=== PATIENT | female | born 1950 ===

== ENCOUNTER 2017-04-29 13:48 | Emergency (ER) | payer OTHER ==
[~2017-04-29] VITALS: Ht 162.6 cm; Wt 73.6 kg
[2017-04-29 13:58] VITALS: TEMP 36.7; Ht 162.6 cm; Wt 73.6 kg
[2017-04-29] MEDS ORDERED: SIMV40TA2 PO (14:06)
[2017-04-29] MEDS ORDERED: XLTOPS (14:06)
[2017-04-29] MEDS ORDERED: MONT1TAB3 PO (14:06)
[2017-04-29] MEDS ORDERED: FAMO40TA6 PO (14:06)
[2017-04-29] MEDS ORDERED: SODIUM CHLORIDE 0.9% 1000ML 1,000 ML IV STA (14:14)
[2017-04-29] MEDS ORDERED: IBUPROFEN 200 MG TAB PO STA (14:14)
[2017-04-29] MEDS ORDERED: ACETAMINOPHEN 325 MG TAB PO STA (14:14)
[2017-04-29] MEDS ORDERED: HYDROCODONE/ACETAMOPHEN 5/325MG TAB PO STA (14:14)
[2017-04-29 14:35] LABS: BASO % 0.1 %; BASO ABS # 0.01 K/uL (0-0.2); COMPLETE YES; EOS % 2.2 %; IG% 0.3 %; LYMPH % 33.4 %; LYMPH ABS # 2.61 K/uL (1.2-3.4); MEAN CELL VOLUME 90.9 fL (80-100); MEAN CORPUSCULAR HEMOGLOBIN 30.5 pg (25-34); MEAN CORPUSCULAR HGB CONC 33.6 g/dl (32-36); MEAN PLATELET VOLUME 11.8 fL (7.4-10.4); MONO % 9.8 %; NEUT % 54.2 %; PLATELET COUNT 188 K/uL (130-400); RED BLOOD COUNT 4.29 M/uL (4.2-5.4); WHITE BLOOD COUNT 7.82 K/uL (4.8-10.8)
[2017-04-29 14:45] LABS: URINE APPEARANCE CLEAR (CLEAR); URINE BILIRUBIN NEG (NEG); URINE COLOR YELLOW; URINE EPITHELIAL CELL AUTO >30 /lpf (0-5); URINE NITRITE NEG (NEG); URINE PH 5.5 (4.5-7.5); URINE SPECIFIC GRAVITY 1.019 (1.000-1.030); UROBILINOGEN NEG (NEG); ZZUR CULT IF INDIC CLEAN CATCH YES
[2017-04-29 14:53] LABS: BUN/CREATININE RATIO 18.1 (10-20); CALCIUM 9.2 mg/dl (8.5-10.1); CREATININE 0.72 mg/dl (0.60-1.20); POTASSIUM 3.4 mmol/L (3.5-5.1)
[2017-04-29 14:57] LABS: MANUAL MICROSCOPIC REQUIRED? NO; REVIEW REQ? NO
--- NOTE | 2017-04-29 16:06 | DIAGNOSTIC IMAGING REPORT ---
(RENAL)RETROPERITON COMP HISTORY: 66 years-old Female h/o nephrolithiasis, R sided flank pain acute right-sided flank pain with history of nephrolithiasis. COMPARISON: None available. TECHNIQUE: Multiple real-time sonographic images of the kidneys and urinary bladder were obtained assessing grayscale appearance and color flow. FINDINGS: The right kidney measures 10.4 x 4.3 x 4.3 cm. Mild right sided hydroureteronephrosis is noted without obstructing stone or mass identified. Renal parenchyma is within normal limits. The left kidney measures 11.8 x 5.8 x 6.4 cm. Renal sinus cyst of the left kidney is seen, 1.3 x 0.8 x 1.0 cm. No left-sided hydronephrosis or renal calculi identified. Urinary bladder is unremarkable with bilateral ureteral jets documented. The right ureteral jet appears to be diminished. IMPRESSION: 1. Mild right-sided hydroureteronephrosis without obstructing stone or mass identified. 2. No definite nephrolithiasis, however kidney stones can often be occult by ultrasound. The above report was generated using voice recognition software. It may contain grammatical, syntax or spelling errors. Electronically signed by: Wicho Brunner M.D. 04/29/2017 4:04 PM Dictated Date/Time: 04/29/2017 4:01 PM
[2017-04-29] MEDS ORDERED: TAMS0.4C38 PO (16:25)
[2017-04-29] MEDS ORDERED: TRAM-10 PO (16:25)
[2017-04-29] MEDS ORDERED: CEPH500C PO (16:30)
--- NOTE | 2017-04-29 16:30 | EMERGENCY ROOM VISIT NOTE ---
History Report prepared by Yves: Hilario Gardner Under the Supervision of: Dr. Abdirahman Merlos M.D. First contact with patient: 14:00 Chief Complaint: ABDOMINAL PAIN Stated Complaint: ABDOMINAL PAIN, BLOOD IN URINE Nursing Triage Summary: triage note; pt reports lower abd pain since yesterday. pt reports nausea. History of Present Illness The patient is a 66 year old female with a past medical history of kidney stones who presents to the ED with a cc of intermittent right flank pain beginning yesterday. Describes her pain as "sharp". Positive urinary symptoms, nausea and lower abdominal pain. Her urinary symptoms include hematuria and increased urinary frequency. Current pain feels similar to previous kidney stones. Negative fevers, chills, chest pain, SOB, vomiting, or cough. No recent trauma. Has been walking a lot, otherwise denies recent straining. Source of History: patient Onset: Yesterday Position: other (right flank) Quality: sharp Timing: intermittent Associated Symptoms: + nausea, + abdominal pain (lower), + urinary symptoms , No fevers, No chills, No cough, No chest pain, No SOB, No vomiting Review of Systems See HPI for pertinent positives and negatives. A total of ten systems were reviewed and were otherwise negative. Past Medical & Surgical Medical Problems: (1) Asthma (2) Hyperlipidemia (3) Kidney stone (4) Mitral prolapse Family History No pertinent family history stated. Social History Smoking Status: Never Smoker Marital Status: Housing Status: lives with family Current/Historical Medications Scheduled Cephalexin Monohydrate (Keflex), 500 MG PO BID Famotidine (Pepcid), 40 MG PO DAILY Montelukast Sodium (Singulair), 10 MG PO DAILY Simvastatin (Zocor), 40 MG PO QPM Tamsulosin Hcl (Flomax), 0.4 MG PO DAILY Scheduled PRN Tramadol (Ultram), 50 MG PO Q8H PRN for Pain Miscellaneous Medications Latanoprost (Latanoprost) Allergies Coded Allergies: Levofloxacin (Unverified Allergy, Unknown, ., 04/29/17) Physical Exam Vital Signs Date Time Temp Pulse Resp B/P (MAP) Pulse Ox O2 Delivery O2 Flow Rate FiO2 04/29/17 17:20 73 18 122/68 96 04/29/17 15:23 82 18 138/90 97 Room Air 04/29/17 13:58 36.7 106 22 154/83 100 Room Air Physical Exam GENERAL: Awake, alert, well-appearing, NAD HENT: Normocephalic, atraumatic. EYES: Normal conjunctiva. Sclera non-icteric. NECK: Supple. No nuchal rigidity. FROM. RESPIRATORY: CTAB, no rhonchi, wheezing, crackles CARDIAC: RRR, no MRG ABDOMEN: Soft, ND, BS+. Mild suprapubic tenderness to palpation. Negative psoas and obturators sign. MSK: No chest wall TTP, no LE edema. No CVA tenderness. NEURO: GCS 15, CN 2-12 intact, moves all 4s on command SKIN: No rash or jaundice noted. Medical Decision & Procedures ER Provider Diagnostic Interpretation: Radiology results as stated below per my review and radiologist interpretation: (RENAL)RETROPERITON COMP FINDINGS: The right kidney measures 10.4 x 4.3 x 4.3 cm. Mild right sided hydroureteronephrosis is noted without obstructing stone or mass identified. Renal parenchyma is within normal limits. The left kidney measures 11.8 x 5.8 x 6.4 cm. Renal sinus cyst of the left kidney is seen, 1.3 x 0.8 x 1.0 cm. No left-sided hydronephrosis or renal calculi identified. Urinary bladder is unremarkable with bilateral ureteral jets documented. The right ureteral jet appears to be diminished. IMPRESSION: 1. Mild right-sided hydroureteronephrosis without obstructing stone or mass identified. 2. No definite nephrolithiasis, however kidney stones can often be occult by ultrasound. The above report was generated using voice recognition software. It may contain grammatical, syntax or spelling errors. Electronically signed by: Wicho Brunner M.D. Laboratory Results 04/29/17 14:20 Red Blood Count 4.29, Mean Corpuscular Volume 90.9, Mean Corpuscular Hemoglobin 30.5, Mean Corpuscular Hemoglobin Concent 33.6, Mean Platelet Volume 11.8, Neutrophils (%) (Auto) 54.2, Lymphocytes (%) (Auto) 33.4, Monocytes (%) (Auto) 9.8, Eosinophils (%) (Auto) 2.2, Basophils (%) (Auto) 0.1, Neutrophils # (Auto) 4.24, Lymphocytes # (Auto) 2.61, Monocytes # (Auto) 0.77, Eosinophils # (Auto) 0.17, Basophils # (Auto) 0.01 04/29/17 14:20 Test 04/29/17 13:53 04/29/17 14:20 04/29/17 14:28 Urine Color YELLOW Urine Appearance CLEAR (CLEAR) Urine pH 5.5 (4.5-7.5) Urine Specific [place] 1.019 (1.000-1.030) Urine Protein NEG (NEG) Urine Glucose (UA) NEG (NEG) Urine Ketones NEG (NEG) Urine Occult Blood 1+ (NEG) Urine Nitrite NEG (NEG) Urine Bilirubin NEG (NEG) Urine Urobilinogen NEG (NEG) Urine Leukocyte Esterase SMALL (NEG) Urine WBC (Auto) 10-30 /hpf (0-5) Urine RBC (Auto) 0-4 /hpf (0-4) Urine Hyaline Casts (Auto) 1-5 /lpf (0-5) Urine Epithelial Cells (Auto) >30 /lpf (0-5) Urine Bacteria (Auto) 1+ (NEG) White Blood Count 7.82 K/uL (4.8-10.8) Red Blood Count 4.29 M/uL (4.2-5.4) Hemoglobin 13.1 g/dL (12.0-16.0) Hematocrit 39.0 % (37-47) Mean Corpuscular Volume 90.9 fL (80-100) Mean Corpuscular Hemoglobin 30.5 pg (25-34) Mean Corpuscular Hemoglobin Concent 33.6 g/dl (32-36) Platelet Count 188 K/uL (130-400) Mean Platelet Volume 11.8 fL (7.4-10.4) Neutrophils (%) (Auto) 54.2 % Lymphocytes (%) (Auto) 33.4 % Monocytes (%) (Auto) 9.8 % Eosinophils (%) (Auto) 2.2 % Basophils (%) (Auto) 0.1 % Neutrophils # (Auto) 4.24 K/uL (1.4-6.5) Lymphocytes # (Auto) 2.61 K/uL (1.2-3.4) Monocytes # (Auto) 0.77 K/uL (0.11-0.59) Eosinophils # (Auto) 0.17 K/uL (0-0.5) Basophils # (Auto) 0.01 K/uL (0-0.2) RDW Standard Deviation 44.2 fL (36.4-46.3) RDW Coefficient of Variation 13.4 % (11.5-14.5) Immature Granulocyte % (Auto) 0.3 % Immature Granulocyte # (Auto) 0.02 K/uL (0.00-0.02) Anion Gap 7.0 mmol/L (3-11) Est Creatinine Clear Calc Drug Dose 76.6 ml/min Estimated GFR () 101.9 Estimated GFR (Non- 87.9 BUN/Creatinine Ratio 18.1 (10-20) Calcium Level 9.2 mg/dl (8.5-10.1) Bedside Troponin I < 0.030 ng/ml (0-0.045) Laboratory results reviewed by me Medications Administered Medications (Trade) Dose Ordered Sig/Valery Route Start Time Stop Time Status Last Admin Dose Admin Acetaminophen (Tylenol Tab) 650 mg NOW STAT PO 04/29/17 14:14 04/29/17 14:17 DC 04/29/17 15:16 650 MG Acetaminophen/ Hydrocodone Bitart ([place] 5/325 Tab) 1 tab ONE STAT PO 04/29/17 14:14 04/29/17 14:17 DC 04/29/17 15:16 1 TAB Sodium Chloride 1,000 ml @ 999 mls/hr Q1H1M STAT IV 04/29/17 14:14 04/29/17 15:14 DC 04/29/17 15:17 999 MLS/HR Ceftriaxone Sodium (Rocephin Inj) 1 gm NOW STAT IV 04/29/17 16:38 04/29/17 16:39 DC 04/29/17 16:45 1 GM ECG Indication: abdominal pain Rate (beats per minute): 75 Rhythm: normal sinus Findings: other (Normal intervals. Normal axis. No other STS changes or TWI) ED Course 1404: The patient was evaluated in room C8. A complete history and physical exam was performed. 1414: Ordered Sodium Chloride 1000 ml @ 999 mls/hr IV, [place] 5/325 Tab PO, Tylenol Tab 650 mg PO, Advil Tab 400 mg PO. 1630: I reevaluated the patient. Discussed results and discharge instructions: she verbalized understanding and agreement. The patient is ready for discharge. Medical Decision The patient is a 66 year old female with a past medical history of kidney stones who presents to the ED with a cc of intermittent right flank pain beginning yesterday. Differential diagnosis: Etiologies such as renal colic, appendicitis, diverticulitis, mesenteric ischemia, aortic pathology, infections, inflammatory bowel disease, PUD, biliary pathology, UTI, as well as others were entertained. Patient was seen and evaluated the bedside. Patient did have right-sided flank pain although her pain is improved. Patient also did have mild suprapubic pain. Patient did have a past history of kidney stones and states that this was similar. Patient denied any trauma or blood thinning medications. Has had recent BM. No fevers, CP or SOB. Has had nausea. EKG NSR w/ no acute signs of ischemia w/ neg trop thus less likely atypical CP or ACS. Patient's UA did have signs questionable for infection in addition to hematuria. Patient did have an ultrasound which did show no obstruction however no stones were identified. Patient did have some mild hydronephrosis, but the patient had normal kidney function without any obstructing stone noted. This may have been due to a recently passed stone. Patient's pain was Wellcome improved. Patient received first dose of anabiotic for UTI. Patient was told to follow up with her primary urologist back in [place]. Patient was agreeable with this plan. Patient was given prescriptions for home. Patient was given strict follow-up, discharge, and return precautions. Patient agreed with plan of care patient was safely discharged home. Medication Reconcilliation Current Medication List: was personally reviewed by me Blood Pressure Screening Patient's blood pressure: Elevated blood pressure Blood pressure disposition: Elevated BP felt to be situational Impression Primary Impression: Kidney stone Additional Impressions: Flank pain Cystitis Nausea Scribe Attestation The scribe's documentation has been prepared under my direction and personally reviewed by me in its entirety. I confirm that the note above accurately reflects all work, treatment, procedures, and medical decision making performed by me. Departure Information Dispostion Home / Self-Care Prescriptions Cephalexin Monohydrate (Keflex) 500 Mg Cap 500 MG PO BID for 7 Days, #14 CAP Prov: Abdirahman Merlos M.D. 04/29/17 Tramadol (Ultram) 50 Mg Tab 50 MG PO Q8H Y for Pain, #14 TAB Prov: Abdirahman Merlos M.D. 04/29/17 Tamsulosin Hcl (FLOMAX) 0.4 Mg Cap 0.4 MG PO DAILY for 30 Days, #30 CAP Prov: Abdirahman Merlos M.D. 04/29/17 Referrals No Doctor, Assigned (PCP) Irvin Cantu MD Patient Instructions ED UTI Cystitis Female, Kidney Stones - [facility], [facility] Additional Instructions Please return to the emergency department if you have worsening or recurrent symptoms not amenable to at-home treatment. Please call for a follow-up appointment with her primary care physician. Please take your medications as prescribed. If you have other concerns and/or complaints please feel free to also call your primary care physician's office or return the ED for further evaluation, management, and treatment. Please take your medications as prescribed and follow up with your urologist. You were found to have an elevated blood pressure today (>120 sytolic or >90 diastolic). Per medicare guidelines, you need to follow up with this blood pressure screening with your Primary Care Physician (PCP). For a new PCP call [phone]. Take 600 mg Ibuprofen every 6 hours with food for no more than two consecutive days. Take 1000mg every 6 hours as needed for pain. Take flomax in the evening. Take Tramadol for breakthrough pain You have been examined and treated today on an emergency basis only. This is not a substitute for, or an effort to provide, complete comprehensive medical care. It is impossible to recognize and treat all injuries or illnesses in a single emergency department visit. It is therefore important that you follow up closely with [facility]. Call as soon as possible for an appointment. Thank you for your time and consideration. I look forward to speaking with you again soon. Please don't hesitate to call us if you have any questions. Problem Qualifiers
[2017-04-29] MEDS ORDERED: CEFTRIAXONE SOD INJ 1 GM ADDVIAL IV STA (16:38)
[2017-04-29 17:20] VITALS: BP 122/68; PULSE 73; O2SAT 96
== END 2017-04-29 17:20 | disposition home or self-care (01) ==
LOC: C.EDB 13:53 → C.EDC 17:20
DX: N20.0 Calculus of kidney (principal); R10.9 Unspecified abdominal pain; N30.90 Cystitis, unspecified without hematuria; R11.0 Nausea; J45.909 Unspecified asthma, uncomplicated; E78.5 Hyperlipidemia, unspecified; Z87.442 Personal history of urinary calculi; I34.1 Nonrheumatic mitral (valve) prolapse; Z79.899 Other long term (current) drug therapy